=== PATIENT | female | born 1970 | race African-American/Black ===

== ENCOUNTER 2022-01-24 16:30 | Inpatient (IN) | payer OTHER ==
[2022-01-24 17:27] VITALS: BMI 35.8
[2022-01-24] MEDS ORDERED: SODIUM CHLORIDE 1,000 ML IV SCH (17:30)
[2022-01-24] MEDS ORDERED: METOCLOPRAMIDE HCL INJECTION 10 MG/2 ML VIAL IVPB ONE (17:48)
[2022-01-24] MEDS ORDERED: ACETAMINOPHEN 1000 MG/100 ML BAG IVPB ONE (17:48)
[2022-01-24] MEDS ORDERED: METOCLOPRAMIDE HCL INJECTION 10 MG/2 ML VIAL ONE (17:50)
[2022-01-24] MEDS ORDERED: ACETAMINOPHEN INJECTION 100 ML IVPB ONE (17:50)
[2022-01-24] MEDS ORDERED: levETIRAcetam 500 MG/5 ML INJECTION VIAL IVPB ONE ×2 (18:24→18:58)
[2022-01-24 19:36] LABS: BASO % 0.7 % (0-2.0); EOS % 4.2 % (0-4.5); HEMATOCRIT 35.4 % (32.4-45.2); LYMPH % 26.3 % (8-40); MCH 30.4 pg (25.7-33.7); MCHC 33.8 g/dl (32.0-36.0); MEAN CELL VOLUME 90.1 fl (80-96); MEAN PLT VOLUME 8.1 fl (7.5-11.1); MONO % 12.9 % (3.8-10.2); NEUT % 55.9 % (42.8-82.8); PLATELET COUNT 456 10^3/uL (134-434); RBC 3.93 M/mm3 (3.60-5.2); WHITE BLOOD COUNT 5.2 K/mm3 (4.0-10.0)
[2022-01-24 19:37] LABS: INR 1.07 (0.83-1.09); PROTHROMBIN TIME (PATIENT) 12.3 SEC (9.7-13.0)
[2022-01-24 19:39] LABS: ACTIVATED PTT 36.7 SECONDS (25.2-36.5)
[2022-01-24 19:46] LABS: ALBUMIN 3.7 g/dl (3.4-5.0); CALCIUM 10.3 mg/dL (8.5-10.1)
[2022-01-24 19:49] LABS: CREATININE 0.7 mg/dL (0.55-1.3)
[2022-01-24 19:50] LABS: TOT PROT 6.9 g/dl (6.4-8.2)
[2022-01-24 19:51] LABS: BILIRUBIN,TOTAL 0.4 mg/dL (0.2-1)
[2022-01-25] MEDS: SODIUM CHLORIDE 1,000 ML IV SCH ×3 (02:22→13:50)
[2022-01-25] MEDS: ACETAMINOPHEN 1000 MG/100 ML BAG IVPB PRN ×3 (04:45→17:06)
[2022-01-25 07:07] LABS: HEMATOCRIT 34.8 % (32.4-45.2); HEMOGLOBIN 11.9 GM/dL (10.7-15.3); MCH 30.7 pg (25.7-33.7); MCHC 34.1 g/dl (32.0-36.0); MEAN CELL VOLUME 89.9 fl (80-96); MEAN PLT VOLUME 7.6 fl (7.5-11.1); PLATELET COUNT 401 10^3/uL (134-434); RBC 3.87 M/mm3 (3.60-5.2); RDW 14.6 % (11.6-15.6); WHITE BLOOD COUNT 3.2 K/mm3 (4.0-10.0)
[2022-01-25 07:30] LABS: CALCIUM 10.3 mg/dL (8.5-10.1)
[2022-01-25 07:31] LABS: BLOOD UREA NITROGEN 9.9 mg/dL (7-18); MAGNESIUM 2.2 mg/dL (1.8-2.4)
[2022-01-25 07:34] LABS: CREATININE 0.7 mg/dL (0.55-1.3)
[2022-01-25 07:36] LABS: PHOSPHOROUS 3.2 mg/dL (2.5-4.9)
[2022-01-25] MEDS ORDERED: levETIRAcetam 500 MG TABLET (FP) PO SCH (10:00)
[2022-01-25] MEDS ORDERED: LOSARTAN POTASSIUM 50 MG TABLET PO SCH (10:00)
[2022-01-25] MEDS: ENOXAPARIN NA (PORCINE) 40 MG/0.4 ML DISP.SYRIN SQ SCH (10:21)
[2022-01-25] MEDS: LOSARTAN POTASSIUM 50 MG TABLET PO SCH (10:21)
[2022-01-25] MEDS ORDERED: LORazepam 2 MG/ML SDV VIAL IVPUSH ONE (12:18)
[2022-01-25] MEDS ORDERED: levETIRAcetam 500 MG/5 ML INJECTION VIAL IVPB ONE (12:22)
[2022-01-25 17:29] LABS: ALBUMIN 3.6 g/dl (3.4-5.0); BLOOD UREA NITROGEN 9.2 mg/dL (7-18); CALCIUM 10.2 mg/dL (8.5-10.1); MAGNESIUM 2.3 mg/dL (1.8-2.4)
[2022-01-25 17:32] LABS: CREATININE 0.7 mg/dL (0.55-1.3)
[2022-01-25 17:36] LABS: BILIRUBIN,TOTAL 0.6 mg/dL (0.2-1)
[2022-01-25] MEDS: levETIRAcetam 500 MG/5 ML INJECTION VIAL IVPB SCH (22:04)
[2022-01-25] MEDS: ATORVASTATIN CA 80 MG TABLET (FP) PO SCH (22:04)
[2022-01-26 06:59] LABS: BASO % 0.7 % (0-2.0); EOS % 7.5 % (0-4.5); HEMATOCRIT 35.9 % (32.4-45.2); HEMOGLOBIN 12.5 GM/dL (10.7-15.3); LYMPH % 30.3 % (8-40); MCH 31.3 pg (25.7-33.7); MCHC 34.7 g/dl (32.0-36.0); MEAN CELL VOLUME 90.3 fl (80-96); MEAN PLT VOLUME 7.8 fl (7.5-11.1); MONO % 10.6 % (3.8-10.2); NEUT % 50.9 % (42.8-82.8); PLATELET COUNT 430 10^3/uL (134-434); RBC 3.98 M/mm3 (3.60-5.2); WHITE BLOOD COUNT 3.3 K/mm3 (4.0-10.0)
[2022-01-26 07:24] LABS: ALBUMIN 3.6 g/dl (3.4-5.0); BLOOD UREA NITROGEN 8.9 mg/dL (7-18); CALCIUM 9.9 mg/dL (8.5-10.1); MAGNESIUM 2.3 mg/dL (1.8-2.4)
[2022-01-26 07:27] LABS: CREATININE 0.7 mg/dL (0.55-1.3)
[2022-01-26 07:28] LABS: BILIRUBIN,TOTAL 0.6 mg/dL (0.2-1); TOT PROT 6.9 g/dl (6.4-8.2)
[2022-01-26] MEDS: LOSARTAN POTASSIUM 50 MG TABLET PO SCH (09:45)
[2022-01-26] MEDS: ENOXAPARIN NA (PORCINE) 40 MG/0.4 ML DISP.SYRIN SQ SCH (09:46)
[2022-01-26] MEDS: levETIRAcetam 500 MG/5 ML INJECTION VIAL IVPB SCH ×2 (09:46→22:34)
[2022-01-26] MEDS ORDERED: ACETAMINOPHEN 1000 MG/100 ML BAG IVPB PRN (10:11)
[2022-01-26] MEDS ORDERED: LORazepam 2 MG/ML SDV VIAL IVPUSH ONE (11:35)
[2022-01-26] MEDS ORDERED: VALPROATE SODIUM 500 MG/5 ML VIAL IVPB ONE (11:46)
[2022-01-26] MEDS ORDERED: VALPROATE SODIUM INJECTION 500 MG in DEXTROSE 5%-WATER - 100 ML IVPB ONE (13:00)
[2022-01-26] MEDS: SODIUM CHLORIDE 1,000 ML IV SCH (14:42)
[2022-01-26] MEDS ORDERED: LORazepam 2 MG/ML SDV VIAL IVPUSH PRN (17:46)
[2022-01-26] MEDS ORDERED: VALPROATE SODIUM 500 MG/5 ML VIAL IVPB SCH (22:00)
[2022-01-26] MEDS: ATORVASTATIN CA 80 MG TABLET (FP) PO SCH (22:38)
[2022-01-26] MEDS: VALPROATE SODIUM INJECTION 500 MG in DEXTROSE 5%-WATER - 100 ML IVPB SCH (22:38)
[2022-01-27 08:24] LABS: BASO % 1.2 % (0-2.0); EOS % 5.8 % (0-4.5); HEMOGLOBIN 11.6 GM/dL (10.7-15.3); LYMPH % 27.5 % (8-40); MCH 30.7 pg (25.7-33.7); MCHC 34.2 g/dl (32.0-36.0); MEAN CELL VOLUME 89.8 fl (80-96); MEAN PLT VOLUME 7.8 fl (7.5-11.1); MONO % 12.3 % (3.8-10.2); NEUT % 53.2 % (42.8-82.8); PLATELET COUNT 431 10^3/uL (134-434); RBC 3.79 M/mm3 (3.60-5.2); RDW 14.3 % (11.6-15.6)
[2022-01-27 08:41] LABS: CALCIUM 9.9 mg/dL (8.5-10.1)
[2022-01-27 08:42] LABS: ALBUMIN 3.4 g/dl (3.4-5.0); BLOOD UREA NITROGEN 8.6 mg/dL (7-18); MAGNESIUM 2.1 mg/dL (1.8-2.4)
[2022-01-27 08:45] LABS: CREATININE 0.7 mg/dL (0.55-1.3)
[2022-01-27 08:47] LABS: BILIRUBIN,TOTAL 0.5 mg/dL (0.2-1); TOT PROT 6.8 g/dl (6.4-8.2)
[2022-01-27] MEDS: levETIRAcetam 500 MG/5 ML INJECTION VIAL IVPB SCH ×2 (09:54→21:26)
[2022-01-27] MEDS: LOSARTAN POTASSIUM 50 MG TABLET PO SCH (09:56)
[2022-01-27] MEDS: ENOXAPARIN NA (PORCINE) 40 MG/0.4 ML DISP.SYRIN SQ SCH (09:56)
[2022-01-27] MEDS: VALPROATE SODIUM INJECTION 500 MG in DEXTROSE 5%-WATER - 100 ML IVPB SCH ×2 (09:56→22:33)
[2022-01-27] MEDS: SODIUM CHLORIDE 1,000 ML IV SCH ×2 (10:21→21:31)
[2022-01-27] MEDS: ACETAMINOPHEN/CAFFEINE/BUTALBITAL 1 TAB PO PRN ×2 (12:03→19:52)
[2022-01-27] MEDS: ATORVASTATIN CA 80 MG TABLET (FP) PO SCH (21:26)
[2022-01-28 05:45] LABS: OPIATES, URI NEGATIVE (NEGATIVE)
[2022-01-28 05:46] LABS: METHADONE, UR NEGATIVE (NEGATIVE); PHENCYCLIDINE,URINE NEGATIVE (NEGATIVE); URINE BENZODIAZEPINES NEGATIVE (NEGATIVE)
[2022-01-28 05:54] LABS: COCAINE, UR NEGATIVE (NEGATIVE); URINE AMPHETAMINES NEGATIVE (NEGATIVE); URINE BARBITURATES POSITIVE (NEGATIVE)
[2022-01-28 07:02] LABS: EOS % 7.8 % (0-4.5); HEMATOCRIT 34.7 % (32.4-45.2); HEMOGLOBIN 11.6 GM/dL (10.7-15.3); LYMPH % 28.4 % (8-40); MCH 30.2 pg (25.7-33.7); MCHC 33.6 g/dl (32.0-36.0); MEAN CELL VOLUME 90.1 fl (80-96); MEAN PLT VOLUME 7.7 fl (7.5-11.1); MONO % 14.9 % (3.8-10.2); NEUT % 47.9 % (42.8-82.8); PLATELET COUNT 435 10^3/uL (134-434); RBC 3.85 M/mm3 (3.60-5.2); RDW 14.8 % (11.6-15.6); WHITE BLOOD COUNT 3.3 K/mm3 (4.0-10.0)
[2022-01-28 07:25] LABS: ALBUMIN 3.4 g/dl (3.4-5.0); BLOOD UREA NITROGEN 7.7 mg/dL (7-18); MAGNESIUM 2.2 mg/dL (1.8-2.4)
[2022-01-28 07:28] LABS: CREATININE 0.7 mg/dL (0.55-1.3)
[2022-01-28 07:30] LABS: BILIRUBIN,TOTAL 0.5 mg/dL (0.2-1); TOT PROT 6.5 g/dl (6.4-8.2)
[2022-01-28] MEDS: LOSARTAN POTASSIUM 50 MG TABLET PO SCH (10:08)
[2022-01-28] MEDS: ENOXAPARIN NA (PORCINE) 40 MG/0.4 ML DISP.SYRIN SQ SCH (10:08)
[2022-01-28] MEDS: levETIRAcetam 500 MG/5 ML INJECTION VIAL IVPB SCH (10:08)
[2022-01-28] MEDS: VALPROATE SODIUM INJECTION 500 MG in DEXTROSE 5%-WATER - 100 ML IVPB SCH (10:47)
[2022-01-28 11:12] VITALS: BP 141/61; PULSE 81; TEMP 97.6
== END 2022-01-28 14:44 | disposition home or self-care (01) | DRG 101 ==
LOC: JER 16:30 → JERBED 18:27 → J4W 01-25 02:01
PROVIDERS: ADMIT Internal Medicine; ATTEND Internal Medicine
DX: G40.909 Epilepsy, unspecified, not intractable, without status epilepticus (principal); I10 Essential (primary) hypertension; G35 Multiple sclerosis; E78.5 Hyperlipidemia, unspecified; I51.7 Cardiomegaly; F12.90 Cannabis use, unspecified, uncomplicated; F17.210 Nicotine dependence, cigarettes, uncomplicated; D86.9 Sarcoidosis, unspecified; E66.9 Obesity, unspecified; Z68.35 Body mass index [BMI] 35.0-35.9, adult
CPT/HCPCS: 36415; 70450-TC; 70553-TC; 71045-TC-FY; 80048; 80053; 80061; 80177; 80307; 82550; 82962; 83036; 83605; 83735; 84100; 84443; 84484; 85025; 85027; 85610; 85730; 86850; 86900; 86901; 93005; 93010; 99291; A9579; C1887; C9803-CS; U0003; U0005